=== PATIENT | male | born 1975 | race African-American/Black ===

== ENCOUNTER 2019-06-19 15:19 | Emergency (ER) | payer OTHER ==
[~2019-06-19] VITALS: Ht 177.8 cm; Wt 117.0 kg
[2019-06-19 15:21] VITALS: Ht 177.8 cm; Wt 117.0 kg
[2019-06-19 17:29] VITALS: BP 130/78
== END 2019-06-19 17:29 | disposition home or self-care (01) ==
LOC: ED 15:19
DX: S01.111A Laceration without foreign body of right eyelid and periocular area, initial encounter (principal); W22.8XXA Striking against or struck by other objects, initial encounter; Y93.89 Activity, other specified; Y92.89 Other specified places as the place of occurrence of the external cause; Y99.8 Other external cause status
CPT/HCPCS: J2001